=== PATIENT | male | born 2000 ===

== ENCOUNTER 2024-03-29 18:14 | Emergency (ER) | payer MEDICAID, OTHER ==
[2024-03-29] MEDS: Ibuprofen 800 MG Tab PO ONE (18:35)
== END 2024-03-29 18:48 | disposition home or self-care (01) ==
LOC: DL.ED 18:14
DX: S86.311A Strain of muscle(s) and tendon(s) of peroneal muscle group at lower leg level, right leg, initial encounter (principal); X50.0XXA Overexertion from strenuous movement or load, initial encounter; Y93.89 Activity, other specified; Y99.0 Civilian activity done for income or pay
CPT/HCPCS: 99283; A9270